=== PATIENT | female | born 1950 | race Caucasian/White ===

== ENCOUNTER 2016-11-18 09:58 | Outpatient (CLI) | payer MEDICARE, OTHER | END 2016-11-18 09:59 | disposition home or self-care (01) | DX: M51.36 Other intervertebral disc degeneration, lumbar region (principal); M47.816 Spondylosis without myelopathy or radiculopathy, lumbar region; M41.56 Other secondary scoliosis, lumbar region; M16.12 Unilateral primary osteoarthritis, left hip; R00.2 Palpitations ==

== ENCOUNTER 2017-04-28 08:27 | Outpatient (CLI) | payer MEDICARE, OTHER ==
--- NOTE | 2017-04-28 12:55 | XRAY Report ---
THREE-VIEW RIGHT FOOT: 04/28/2017 CLINICAL INDICATION: Right foot swelling. FINDINGS: AP, lateral, oblique views of the right foot demonstrate soft tissue swelling. Mild osteo arthritis is present. There is no evidence of acute fracture or dislocation. IMPRESSION: SOFT TISSUE SWELLING, BUT NO EVIDENCE OF FRACTURE. JOB #: [id number] EXT JOB #:[id number]
== END 2017-04-28 08:28 | disposition home or self-care (01) ==
LOC: DI 08:27
PROVIDERS: ATTEND Nurse Practitioner Family
DX: R22.41 Localized swelling, mass and lump, right lower limb (principal)

== ENCOUNTER 2017-12-11 12:55 | Outpatient (CLI) | payer MEDICARE, OTHER ==
--- NOTE | 2017-12-12 11:49 | DEXA Report ---
DEXA SCAN: 12/11/2017 CLINICAL INDICATION: Postmenopausal. TECHNIQUE: Dual energy x-ray absorptiometry (DXA) was performed on a [employer] system. Regions measured are the AP spine, femoral neck, and, if needed, forearm. COMPARISON: None. In accordance with the International Society for Clinical Densitometry (ISCD) guidelines, data from previous exams may be reanalyzed using current recommendations and techniques. This is done to allow a more accurate basis for comparison with the current study. FINDINGS: The data for the lumbar spine is as follows: REGION BMD (g/cm/cm) T-SCORE Z-SCORE L1 1.121 -0.1 1.2 L2 1.200 0.0 1.2 L3 1.107 -0.8 0.5 L4 1.039 -1.3 -0.1 TOTAL 1.113 -0.6 0.7 NOTE: All evaluable vertebrae are used for classification. The data for the hip is as follows: REGION BMD (g/cm/cm) T-SCORE Z-SCORE Neck 0.784 -1.8 -0.5 TOTAL 0.734 -2.2 -1.1 NOTE: The femoral neck or total proximal femur, whichever is lowest, is used for classification. IMPRESSION: THE WHO CLASSIFICATION BASED ON THE INTERNATIONAL REFERENCE STANDARD IS OSTEOPENIA. THE FRACTURE RISK IS INCREASED. RECOMMENDATION: Patients with diagnosis of osteoporosis or osteopenia should have regular bone mineral density assessment. For those eligible for Medicare, routine testing is allowed once every 2 years. Testing frequency can be increased for patients who have rapidly progressing disease or for those who are receiving medical therapy to restore bone mass. COMMENT: World Health Organization (WHO) definitions for osteoporosis and osteopenia: NORMAL BMD: T-score at 1.0 or higher, fracture risk is low. OSTEOPENIA BMD: T-score between 1.0 and -2.5, fracture risk is increased. OSTEOPOROSIS BMD: T-score at 2.5 or lower, fracture risk high. National Osteoporosis Foundation recommends: 1. Obtain adequate dietary calcium (at least 1200 mg per day) and vitamin D (400 -800 international units per day). 2. Participate, as appropriate, in regular weightbearing and muscle- strengthening exercise. 3. Avoid tobacco use and reduce alcohol and caffeine intake. 4. For more detailed information see the website at www.NOF.org. MTDD
== END 2017-12-11 12:56 | disposition home or self-care (01) ==
LOC: DI 12:55
PROVIDERS: ATTEND Physician Assistant
DX: M85.88 Other specified disorders of bone density and structure, other site (principal); Z78.0 Asymptomatic menopausal state
CPT/HCPCS: 77080

== ENCOUNTER 2023-09-08 11:41 | Outpatient (CLI) | payer MEDICARE, OTHER | END 2023-09-08 11:42 | disposition critical access hospital (66) | LOC: EMS 11:41 | DX: M25.521 Pain in right elbow (principal); W18.39XA Other fall on same level, initial encounter; Y92.009 Unspecified place in unspecified non-institutional (private) residence as the place of occurrence of the external cause | CPT/HCPCS: A0425; A0429 ==

== ENCOUNTER 2023-09-08 12:20 | Emergency (ER) | payer MEDICARE, OTHER ==
--- NOTE | 2023-09-08 12:29 | ED Physician Documentation ---
PD HPI Fall - Stated complaint Stated Complaint: GLF - History obtained from History obtained from: Patient - Additional information Additional information: Right-handed woman was tying her shoe and slipped and fell and injured her right elbow. No other injuries. Declines pain medication on initial evaluation. No head or neck injury. PD PAST MEDICAL HISTORY - Present Medications Home Medications: Ambulatory Orders Medication Instructions Recorded Confirmed HYDROcod/ACETAM 5/325 [[place] 5/325] 1 - 2 tab PO Q6H PRN #15 tablet 09/08/23 - Allergies Allergies/Adverse Reactions: Allergies Allergy/AdvReac Type Severity Reaction Status Date / Time No Known Drug Allergies Allergy Verified 09/08/23 13:15 PD ED PE NORMAL - Vitals Vital signs reviewed: Yes - General General: Alert and oriented X 3, No acute distress - HEENT HEENT: PERRL, EOMI - Neck Neck: Supple, no meningeal sign, No bony TTP - Extremities Extremities: Other (Focally tender in the right elbow over the radial head and cannot range the right elbow. No shoulder or wrist tenderness. Normal neurovascular function in the right hand.) - Neuro Neuro: Alert and oriented X 3, Normal speech Results - Vitals Vitals: Vital Signs - 24 hr 09/08/23 13:12 Temperature 36.9 C Heart Rate 68 Respiratory 18 Rate Blood Pressure 151/90 H O2 Saturation 99 Oxygen O2 Source Room air - Rads (name of study) L elbow xr Relevant Findings:: Final report received, EMP independent interpretation of test PD Medical Decision Making - ED course ED course: 73-year-old woman with isolated right elbow injury. X-rays showing to my I definitely a radial neck fracture and this is consistent with her exam. Radiologist wonders if she has an elbow subluxation. She is placed in a sling and referred to orthopedics. She declined pain medication. Departure - Departure Disposition: 01 Home, Self Care Clinical Impression: Radial neck fracture Qualifiers: Encounter type: initial encounter Fracture type: closed Fracture alignment: nondisplaced Laterality: right Qualified Code(s): S52.134A - Nondisplaced fracture of neck of right radius, initial encounter for closed fracture Condition: Good Record reviewed to determine appropriate education?: Yes Instructions: ED Fx Radial Head Follow-Up: Orthopedic Care [Provider Group] Prescriptions: HYDROcod/ACETAM 5/325 [[place] 5/325] 1 - 2 tab PO Q6H PRN #15 tablet PRN Reason: Pain Comments: I sent your prescription electronically to the [facility] in [place]. Call the orthopedics office today or Monday for an appointment within a week or so. You can wear the sling for comfort but after a few days if you want to start doing gentle range of motion exercises you are more than welcome to do so. Return for new or worsening symptoms. I am prescribing a short course of narcotic pain medication for you. These are potentially dangerous and addictive medications that should be used carefully. These medications may constipate you. Take an ohry-rew-mfzczxi stool softener (docusate) twice daily with plenty of water while taking these medications. If you go 24 hours without a bowel movement, take vltk-giz-uxcthgd miralax, per package instructions. Do not drink or drive while taking these medications. If you received narcotic or sedating medications while in the emergency department, do not drive for 24 hours. Store this medication in a safe, secure place and out of reach of children. It is a violation of federal law to give or sell this medication to another person or to use in a manner other than prescribed. The ED will not refill narcotic prescriptions, including prescriptions lost or stolen. To dispose of unwanted medications: 1. [facility] provides a drop box for medication in pill form only (no liquids) 8:00 am to 4:30 p.m. Monday-Monday in the lobby of the [facility], [address] [place] [address]. Empty pills into ziplock bag before disposal. Call [phone] for information. 2.[employer] is a free service available to all [facility] residents. Go to [email or web address] Note that many narcotic pain relievers also contain Tylenol/acetaminophen. Please ensure that your total dose of acetaminophen from all sources does not exceed 3 g (3000 mg) per day. Forms: PCP List Discharge Date/Time: 09/08/23 13:26
[2023-09-08 13:16] VITALS: BP 151/90; O2SAT 99
--- NOTE | 2023-09-08 13:27 | XRAY Report ---
PROCEDURE: Elbow 3 View RT INDICATIONS: elbow inj TECHNIQUE: 3 views of the elbow were acquired. COMPARISON: None. FINDINGS: Bones: Suggestion of probable radial neck fracture. No involvement of radial head noted. Probable el bow subluxation. Soft tissues: Question effusion. No suspicious soft tissue calcifications or masses. IMPRESSION: 1. Probable radial neck fracture. 2. Probable elbow subluxation. Comment: Consider CT elbow. Reviewed by: Levi Gage MD on 09/08/2023 1:26 PM PST Approved by: Levi Gage MD on 09/08/2023 1:26 PM PST Station ID: [id number]
== END 2023-09-08 13:26 | disposition home or self-care (01) ==
LOC: EDBD → ED 12:20
DX: S52.134A Nondisplaced fracture of neck of right radius, initial encounter for closed fracture (principal); W01.0XXA Fall on same level from slipping, tripping and stumbling without subsequent striking against object, initial encounter; Y93.89 Activity, other specified
CPT/HCPCS: 99283; 99284

== ENCOUNTER 2023-09-12 08:00 | Outpatient (CLI) | payer MEDICARE, OTHER ==
--- NOTE | 2023-09-12 16:31 | XRAY Report ---
PROCEDURE: Elbow 3 View RT INDICATIONS: RIGHT ELBOW FRACTURE TECHNIQUE: 5 views of the elbow were acquired. COMPARISON: 06/08/2023. FINDINGS: Bones: There is a relatively nondisplaced radial neck fracture. No other acute fractures or dislocati ons are identified. No significant degenerative changes seen. No joint effusion is present. IMPRESSION: Nondisplaced radial neck fracture. Reviewed by: Brian Albert MD on 09/12/2023 4:30 PM PST Approved by: Brian Albert MD on 09/12/2023 4:30 PM PST Station ID: [id number]
== END 2023-09-12 23:59 | disposition home or self-care (01) ==
LOC: DI.WOS 08:00
PROVIDERS: ATTEND Orthopaedic Surgery
DX: S52.134A Nondisplaced fracture of neck of right radius, initial encounter for closed fracture (principal)

== ENCOUNTER 2023-09-18 19:09 | Outpatient (CLI) | payer MEDICARE, OTHER | END 2023-09-18 23:59 | disposition critical access hospital (66) | LOC: EMS 19:09 | DX: R53.1 Weakness (principal) | CPT/HCPCS: A0425; A0429 ==

== ENCOUNTER 2023-09-18 19:48 | Emergency (ER) | payer MEDICARE, OTHER ==
[2023-09-18] MEDS ORDERED: SODIUM CHLORIDE 0.9% 500 ML IV STA (20:17)
--- NOTE | 2023-09-18 20:29 | ED Physician Documentation ---
History of Present Illness - Stated complaint Stated Complaint: WEAKNESS - Chief complaint Chief Complaint: General - History obtained from History obtained from: Patient - Additonal information Additional information: Patient is a 73-year-old female presenting for evaluation of increasing weakness for the past 1 week. She reports feeling tingling to bilateral feet and feels like her legs are going to give out at her, Particularly the left leg. She reports having ongoing issues with the left leg due to osteoarthritis of the left hip and actually fell recently due to the left leg giving out on her. She fell on Sep 08 and was seen in our emergency department and found to have a right elbow fracture and has followed up with orthopedic surgery. She is actually scheduled to see them again tomorrow. She only took a half a hydrocodone the first 3 nights to sleep but since then has only been using extra strength Tylenol. She went to the walk-in clinic in [place] on Monday for her symptoms and they obtained a large panel of blood work which she does not know the results of and referred her to neurology for her peripheral neuropathy. She has also been feeling urinary urgency for the past several days and feels like she is not emptying her bladder.She denies back pain, numbness throughout the legs, saddle anesthesia. She does not take a blood thinner. Denies episodes of incontinence. No fever, chest pain, shortness of air. Her was helping her to the bathroom when her legs were giving out and he tried to catch her and she reports having some mild pain to the right rib area as well as to the left hip. Reports having chronic left hip pain. Review of Systems Constitutional: denies: Fever Cardiac: denies: Chest pain / pressure Respiratory: denies: Dyspnea, Cough GI: denies: Abdominal Pain, Vomiting : reports: Frequency Musculoskeletal: denies: Back pain Neurologic: reports: Generalized weakness. denies: Syncope, Headache PD PAST MEDICAL HISTORY - Past Medical History Past Medical History: Yes - Past Surgical History Past Surgical History: No - Present Medications Home Medications: Ambulatory Orders Medication Instructions Recorded Confirmed HYDROcod/ACETAM 5/325 [[place] 5/325] 1 - 2 tab PO Q6H PRN #15 tablet 09/08/23 Metoprolol Succinate [Toprol Xl] DAILY 09/19/23 - Allergies Allergies/Adverse Reactions: Allergies Allergy/AdvReac Type Severity Reaction Status Date / Time No Known Drug Allergies Allergy Verified 09/18/23 20:03 - Social History Does the pt smoke?: No Smoking Status: Never smoker Does the pt drink ETOH?: No Does the pt have substance abuse?: No - Immunizations Immunizations are current?: Yes - POLST Patient has POLST: No PD ED PE NORMAL - General General: Alert and oriented X 3, No acute distress, Well developed/nourished - HEENT HEENT: Atraumatic, Moist mucous membranes, Pharynx benign - Neck Neck: Supple, no meningeal sign - Cardiac Cardiac: RRR, Strong equal pulses - Respiratory Respiratory: No respiratory distress, Clear bilaterally - Abdomen Abdomen: Normal bowel sounds, Soft, Non distended, Other (Suprapubic tenderness) - Derm Derm: Warm and dry - Extremities Extremities: Other (Right arm in sling neck, radial pulses intact bilaterally, pedal pulses intact bilaterally; Pain on range of motion of left hip which patient states is chronic, normal strength with ankle dorsiflexion and plantarflexion; normal patellar and ankle jerk reflexes b/l) - Neuro Neuro: Alert and oriented X 3, sink cutter 2-12 intact, No motor deficit, No sensory deficit, Normal speech Results - Vitals Vitals: Vital Signs - 24 hr 09/18/23 09/18/23 09/19/23 19:59 22:38 01:53 Temperature 37.0 C Heart Rate 89 86 83 Respiratory 18 18 18 Rate Blood Pressure 155/113 H 141/99 H O2 Saturation 98 98 96 09/19/23 06:12 Temperature Heart Rate 71 Respiratory 18 Rate Blood Pressure O2 Saturation 94 Oxygen O2 Source Room air - EKG (time done) 2031 EKG releavant findings:: EKG personally interpreted by author of this note. Relevant findings are: Rate 87, normal sinus rhythm, no STEMI, QTc 481 - Labs Labs: Laboratory Tests 09/18/23 09/18/23 09/18/23 20:07 20:49 20:49 WBC 8.8 RBC 4.50 Hgb 13.6 Hct 41.8 MCV 92.9 MCH 30.2 MCHC 32.5 RDW 12.8 Plt Count 290 MPV 9.4 Neut # (Auto) 6.2 Lymph # (Auto) 1.6 [place] # (Auto) 0.7 Eos # (Auto) 0.2 Baso # (Auto) 0.1 Absolute Nucleated RBC 0.00 Nucleated RBC % 0.0 Sodium 138 Potassium 3.8 Chloride 105 Carbon Dioxide 25 Anion Gap 8.0 BUN 24 H Creatinine 0.7 Estimated GFR (MDRD) 82 L Glucose 117 H Calcium 9.9 Total Bilirubin 0.4 AST 14 ALT 10 Alkaline Phosphatase 59 Total Protein 6.8 Albumin 4.3 Globulin 2.5 Albumin/Globulin Ratio 1.7 Lipase 40 TSH 1.94 Urine Color YELLOW Urine Clarity CLEAR Urine pH 6.5 Ur Specific [place] 1.010 Urine Protein NEGATIVE Urine Glucose (UA) NEGATIVE Urine Ketones NEGATIVE Urine Occult Blood NEGATIVE Urine Nitrite NEGATIVE Urine Bilirubin NEGATIVE Urine Urobilinogen 0.2 (NORMAL) Ur Leukocyte Esterase NEGATIVE Ur Microscopic Review NOT INDICATED Urine Culture Comments NOT INDICATED PD Medical Decision Making - ED course Complexity details: reviewed results, re-evaluated patient, d/w patient, d/w family ED course: Patient is a 73-year-old female presenting for evaluation of generalized weakness over the past 1 week. Patient did have a fall recently with a right radial head fracture. She has also been feeling like her left leg has been giving out on her more for the past several weeks and does have known severe osteoarthritis of that left hip. She has had no head injuries or further falls. She has felt some tingling in her feet as well as having some difficulty with emptying her bladder. She denies back pain, saddle anesthesia, incontinence. No fevers, history of IV drug use and does not take any blood thinners. No chest pain, shortness of air or abdominal symptoms. She did feel her legs giving out on her at this evening while trying to use the bathroom but her was able to catch her. She does report pain to the right ribs and left hip which x-rays were obtained and reviewed and without findings of acute fracture. She does have severe osteoarthritis on the left hip. She was found to have postvoid retention and a Rosales catheter was placed. Patient does feel better with this. CBC, chemistries, urinalysis were also obtained and reviewed and without significant findings. Patient was given some IV fluids. There is no urine infection.She again denies any back pain has had no trauma or discomfort to the back. Reflexes are intact in lower extremities. Sensation appears to be symmetric and no focal deficits to suggest a stroke.She is able to sit up on the edge of the bed without issue and does have symmetric strength in the lower extremities. Distal pulses intact. We did attempt to ambulate the patient and she continues to feel weak and wanting to hold onto her but she is able to ambulate. SHe is not able to use a walker given the injury to the R arm. I am concerned that if she goes home tonight that she would have another fall and she has already had a recent fall resulting in a fracture. Therefore we have made the decision to hold the patient in the emergency department overnight and have PT and OT evaluate her in the morning along with social work to determine a safe disposition. Patient will be signed out to oncoming provider at shift change. Departure - Departure Clinical Impression: Bilateral leg weakness, Urinary retention Radial head fracture, closed Qualifiers: Encounter type: subsequent encounter Laterality: right Condition: Stable Forms: PCP List
[2023-09-18 20:32] LABS: BILIRUBIN,URINE NEGATIVE (NEGATIVE); GLUCOSE, URINE (UA) NEGATIVE (NEGATIVE); KETONES,URINE (UA) NEGATIVE (NEGATIVE); LEUKOCYTE ESTERASE, URINE NEGATIVE (NEGATIVE); NITRITE,URINE NEGATIVE (NEGATIVE); OCCULT BLOOD,URINE NEGATIVE (NEGATIVE); PH,URINE 6.5 PH (5.0-7.5); PROTEIN,URINE NEGATIVE (NEGATIVE); UROBILINOGEN,URINE 0.2 (NORMAL) E.U./dL (NORMAL)
[2023-09-18 20:34] LABS: CLARITY,URINE CLEAR (CLEAR)
[2023-09-18 20:53] LABS: BASOPHILS # (AUTO) 0.1 10^3/uL (0.0-0.1); BASOPHILS % (AUTO) 0.7 %; EOSINOPHILS # (AUTO) 0.2 10^3/uL (0.0-0.7); EOSINOPHILS % (AUTO) 2.5 %; HCT - HEMATOCRIT 41.8 % (37.0-47.0); HGB - HEMOGLOBIN 13.6 g/dL (12.0-16.0); LYMPHOCYTES # (AUTO) 1.6 10^3/uL (1.5-3.5); LYMPHOCYTES % (AUTO) 17.7 %; MEAN CORPUSCULAR HEMOGLOBIN 30.2 pg (27.0-31.0); MEAN CORPUSCULAR HGB CONC 32.5 g/dL (32.0-36.0); MEAN CORPUSCULAR VOLUME 92.9 fL (81.0-99.0); MEAN PLATELET VOLUME 9.4 fL (7.9-10.8); MONOCYTES # (AUTO) 0.7 10^3/uL (0.0-1.0); MONOCYTES % (AUTO) 7.9 %; NEUTROPHILS # (AUTO) 6.2 10^3/uL (1.5-6.6); PLT - PLATELET COUNT 290 10^3/uL (130-450); RED CELL DISTRIBUTION WIDTH 12.8 % (12.0-15.0); WHITE BLOOD COUNT 8.8 x10^3/uL (4.8-10.8)
[2023-09-18 21:15] LABS: ALBUMIN 4.3 g/dL (3.2-5.5); ALBUMIN/GLOBULIN RATIO 1.7 (1.0-2.2); BILIRUBIN,TOTAL 0.4 mg/dL (0.2-1.0); CALCIUM 9.9 mg/dL (8.5-10.3); CREATININE 0.7 mg/dL (0.6-1.3); POTASSIUM 3.8 mmol/L (3.5-4.5); TOTAL PROTEIN 6.8 g/dL (6.4-8.9)
[2023-09-18 21:24] LABS: THYROID STIMULATING HORMONE 1.94 uIU/mL (0.34-5.60)
--- NOTE | 2023-09-18 22:59 | XRAY Report ---
PROCEDURE: Hip w/Pelvis 2-3V LT INDICATIONS: pain TECHNIQUE: AP pelvis with lateral view of the left hip. COMPARISON: Left hip radiographs 11/28/2016. FINDINGS: Bones: No acute fractures or dislocations. No suspicious bony lesions. Severe left hip osteoarthr osis with remodeling of the articular surfaces. Moderate right hip osteoporosis. Degenerative changes are seen in the included lumbar spine. Soft tissues: No suspicious soft tissue calcifications or masses. IMPRESSION: Asymmetric severe left hip osteoarthrosis, which has progressed when compared to the exam from 017. No acute osseous fracture identified. Reviewed by: Gaetano Bear MD on 09/18/2023 10:58 PM PST Approved by: Gaetano Bear MD on 09/18/2023 10:58 PM PST Station ID: [id number]
--- NOTE | 2023-09-18 23:06 | XRAY Report ---
PROCEDURE: Ribs w/PA Chest RT INDICATIONS: pain TECHNIQUE: 2 views of the right ribs were acquired, along with a single view chest. COMPARISON: None. FINDINGS: Surgical changes and devices: None. Bones and chest wall: No no acute displaced rib fracture. No suspicious bony lesions. Overlying so ft tissues appear unremarkable. Lungs and pleura: No pleural effusions or pneumothorax. Lungs appear clear. Mediastinum: Mediastinal contours appear normal. Heart size is normal. IMPRESSION: No acute displaced rib fracture or pneumothorax. Reviewed by: Gaetano Bear MD on 09/18/2023 11:04 PM PST Approved by: Gaetano Bear MD on 09/18/2023 11:04 PM [facility] Station ID: [id number]
[2023-09-19] MEDS: ACETAMINOPHEN 500 MG TABLET PO PRN ×2 (00:33→09:10)
[2023-09-19] MEDS: PANTOPRAZOLE 40 MG TABLET PO SCH ×2 (06:18→09:09)
[2023-09-19] MEDS ORDERED: KETOROLAC 15 MG/ML VIAL IVP STA (09:14)
--- NOTE | 2023-09-19 09:17 | ED Physician Documentation ---
ED Addendum - Addendum Addendum: 09/19/23 09:14 The patient and her spouse were stating her back pain was increased. She had been taking Tylenol at home and was asking for some extra strength. I noted in the orders that it was in place as a every 6 as needed and pointed that to the nurse who will give her some Tylenol. The patient does have an IV's in place and we can do some Toradol as well. She has noted leg weakness and some numbness as well as some urinary incontinence started about 4 to 5 days after a fall 2 weeks ago. She had been less up and around so some element perhaps of deconditioning. History of lumbar disc herniation in the past without this level of symptoms. In talking to her I think an MRI of the spine lumbar would be appropriate. She will think about it at this point. She is due to see a neurologist in a couple of days and was supposed to see orthopedics today. I think they would probably think an MRI lumbar appropriate and I conveyed this to the patient that it would be a step up ahead of the neurology visit as he is most likely to order that. She agrees to that but is still not sure "not sure if I am feeling up to it today". I offered other pain medicines and anxiolytics if needed for the MRI.
[2023-09-19] MEDS ORDERED: LORazepam 2 MG/ML VIAL IVP STA (12:29)
[2023-09-19] MEDS ORDERED: DEXAMETHASONE 10 MG/ML VIAL IVP STA (14:45)
--- NOTE | 2023-09-19 16:54 | MRI Report ---
PROCEDURE: LUMBAR SPINE WO INDICATIONS: new weakness, numbness in legs TECHNIQUE: Noncontrast sagittal T1 spin echo and T2 fast echo, sagittal STIR, axial T1 and T2 fast spin echo thr ough the lumbar spine. In cases with scoliosis, additional coronal T2 fast spin echo may be performe d. COMPARISON: None. FINDINGS: Image quality: Excellent. Alignment and Curvature: There is normal bony alignment. Bone Marrow: Mild Modic type II reactive endplate changes noted adjacent to the L1-L2, L2-L3 and L4-L 5 discs. No acute vertebral body compression fractures. Spinal Cord: Conus medullaris terminates at the L1 level. Visualized cord demonstrates normal signa l and size. Paraspinous Soft Tissues: No paravertebral masses. T12-L1: Normal in appearance. L1-L2: Loss of disc signal and height. Moderate, diffuse disc bulge. Mild narrowing of the central canal. Mild bilateral neural foraminal narrowing. No neural compression. L2-L3: Loss of disc signal and height. Moderate, diffuse disc bulge. Small left central disc extru rodo. Mild narrowing of the central canal. Mild bilateral neural foraminal narrowing. No neural compr ession. L3-L4: Loss of disc signal. No central stenosis. No neural foraminal narrowing. No neural compressi on. L4-L5: Loss of disc signal and height. Mild, diffuse disc bulge. Mild narrowing of the central anisha l. Mild right neural foraminal narrowing. No neural compression. L5-S1: Loss of disc signal. Mild, diffuse disc bulge. No central stenosis. No neural foraminal narr owing. No neural compression. IMPRESSION: Multilevel degenerative disc disease. No severe central canal stenosis. No severe neural foraminal narrowing. No neural compression. Reviewed by: Brittnee Pettit MD, PhD on 09/19/2023 4:53 PM PST Approved by: Brittnee Pettit MD, PhD on 09/19/2023 4:53 PM PST Station ID: [id number]
[2023-09-19] MEDS ORDERED: ACETAMINOPHEN 325 MG TABLET PO STA (17:48)
[2023-09-19 18:05] VITALS: O2SAT 96
--- NOTE | 2023-09-19 18:32 | ED Physician Documentation ---
ED Addendum - Addendum Addendum: Patient was signed out to me by Dr. Monsivais awaiting MRI results. MRI does not show any acute abnormalities. No evidence of cauda equina, epidural abscess. She has apparently had urinary retention issues for the past several months. Has had some issues with peripheral neuropathy as well. We will trial her on pregabalin for home as she does have restless leg syndrome as well as peripheral neuropathy. I did a repeat x-ray of her known radial head/neck fracture. This appears to be healing well. Discussed case with Dr. Cheney, orthopedics, he recommends range of motion, removal of the sling. Reviewed the PT/OT notes. Recommend a wide-based cane versus a platform walker for home. She will follow- up with her doctor in the morning for this. Will also write down the list of equipment that Occupational Therapy recommended. Patient did well ambulating in the emergency department. Patient and family are comfortable going home at this time. She does not want any narcotic pain medication. Patient and family counseled regarding signs and symptoms for which I believe and urgent re-evaluation would be necessary. Patient with good understanding of and agreement to plan and is comfortable going home at this time This document was made in part using voice recognition software. While efforts are made to proofread this document, sound alike and grammatical errors may occur. Departure - Departure Disposition: 01 Home, Self Care Clinical Impression: Bilateral leg weakness, Urinary retention Radial head fracture, closed Qualifiers: Encounter type: initial encounter Fracture alignment: nondisplaced Laterality: right Qualified Code(s): S52.124A - Nondisplaced fracture of head of right radius, initial encounter for closed fracture Condition: Stable Instructions: Neuropathy Peripheral, ED Catheter Care Rosales, ED Fx Radial Head, ED Retention Urinary Female Follow-Up: Sherrie Mcconnell MD [Primary Care Provider] - Tomorrow Prescriptions: Pregabalin 50 mg PO BID #20 cap Comments: Please follow-up with your doctor tomorrow for further care. Physical therapy has recommended home health and physical therapy to continue to work with you at home. You can try either ambulating with a platform walker to take the weight off of the right arm or with a quad cane. Your doctor would need to be the one to order home health and physical therapy. You were seen by physical therapy and Occupational Therapy in the emergency department. Occupational Therapy recommends a raised toilet seats, possible bedside commode with grab bars, shower/bath chair. Your radial head fracture appears to be healing. I discussed the case with Dr. Cheney, orthopedics who recommends removing the sling at this time. We still do not want to bearing weight on the elbow, but you should start to do range of motion exercises with the elbow. Please follow-up with your doctor for further care regarding your neuropathy and urinary retention. They may want to refer you to a urologist as well. Your MRI read as below. We will try you on some medication for neuropathy and restless leg syndrome at home. Your prescriptions were sent to [facility] in [place]. We are going to trial you on a low-dose of pregabalin, this drug may cause drowsiness, therefore I would recommend starting it at night. After the first 1 to 2 days, you can start to take it twice a day to see if this improves your restless legs and your neuropathy. PROCEDURE: LUMBAR SPINE WO INDICATIONS: new weakness, numbness in legs TECHNIQUE: Noncontrast sagittal T1 spin echo and T2 fast echo, sagittal STIR, axial T1 and T2 fast spin echo through the lumbar spine. In cases with scoliosis, additional coronal T2 fast spin echo may be perf ormed. COMPARISON: None. FINDINGS: Image quality: Excellent. Alignment and Curvature: There is normal bony alignment. Bone Marrow: Mild Modic type II reactive endplate changes noted adjacent to the L1-L2, L2-L3 and L4- L5 discs. No acute vertebral body compression fractures. Spinal Cord: Conus medullaris terminates at the L1 level. Visualized cord demonstrates normal signal and size. Paraspinous Soft Tissues: No paravertebral masses. T12-L1: Normal in appearance. L1-L2: Loss of disc signal and height. Moderate, diffuse disc bulge. Mild narrowing of the central canal. Mild bilateral neural foraminal narrowing. No neural compression. L2-L3: Loss of disc signal and height. Moderate, diffuse disc bulge. Small left central disc extrusion. Mild narrowing of the central canal. Mild bilateral neural foraminal narrowing. No neural compression. L3-L4: Loss of disc signal. No central stenosis. No neural foraminal narrowing. No neural compression. L4-L5: Loss of disc signal and height. Mild, diffuse disc bulge. Mild narrowing of the central canal. Mild right neural foraminal narrowing. No neural compression. L5-S1: Loss of disc signal. Mild, diffuse disc bulge. No central stenosis. No neural foraminal narrowing. No neural compression. IMPRESSION: Multilevel degenerative disc disease. No severe central canal stenosis. No severe neural foraminal narrowing. No neural compression. Forms: PCP List Discharge Date/Time: 09/19/23 19:12
--- NOTE | 2023-09-19 18:36 | XRAY Report ---
PROCEDURE: Elbow 3 View RT INDICATIONS: radial head fracture TECHNIQUE: 3 views of the elbow were acquired. COMPARISON: Elbow x-ray 09/12/2023 FINDINGS: Bones: Minimally displaced proximal radial neck fracture. Soft tissues: Minimal effusion. No suspicious soft tissue calcifications or masses. IMPRESSION: Minimally displaced proximal radial neck fracture. Reviewed by: Erna Montes MD on 09/19/2023 6:35 PM PST Approved by: Erna Montes MD on 09/19/2023 6:35 PM PST Station ID: [id number]
[2023-09-19 19:16] VITALS: BP 133/82
[2023-09-19] MEDS ORDERED: METOPROLOL SUCCINATE 50 MG TABLET PO SCH (21:00)
== END 2023-09-19 19:12 | disposition home or self-care (01) ==
LOC: EDBD → EDUNIT# → ED 19:48
DX: R33.9 Retention of urine, unspecified (principal); S52.121D Displaced fracture of head of right radius, subsequent encounter for closed fracture with routine healing; X58.XXXD Exposure to other specified factors, subsequent encounter; R53.1 Weakness; R20.2 Paresthesia of skin
CPT/HCPCS: 36415; 71101; 72148; 73080; 73502; 80053; 81003; 83690; 84443; 85025; 93005; 96374; 96375; 97116; 97162; 97167; 99284; A9270; J2060; 81001; 87086

== ENCOUNTER 2023-09-20 08:01 | Outpatient (CLI) | payer MEDICARE, OTHER | END 2023-09-20 08:02 | disposition EMS.NT | LOC: EMS 08:01 | DX: Z03.89 Encounter for observation for other suspected diseases and conditions ruled out (principal) ==

== ENCOUNTER 2023-09-20 09:49 | Outpatient (CLI) | payer MEDICARE, OTHER | END 2023-09-20 09:50 | disposition EMS.NT | LOC: EMS 09:49 | DX: T83.84XA Pain due to genitourinary prosthetic devices, implants and grafts, initial encounter (principal) ==

== ENCOUNTER 2023-09-20 11:02 | Emergency (ER) | payer MEDICARE, OTHER ==
--- NOTE | 2023-09-20 12:39 | ED Physician Documentation ---
History of Present Illness - Stated complaint Stated Complaint: CATHETER TIGHTNESS - Chief complaint Chief Complaint: General - History obtained from History obtained from: Patient, Family - History of Present Illness Timing: Today Pain level max: 0 Pain level now: 0 - Additonal information Additional information: Patient is a 73-year-old female who presents to the emergency department after a slip at home today. She has a Rosales catheter in place and wants to make sure that it did not become dislodged. She is not having any significant pain. The catheter has been draining clear yellow urine since the event. No blood in the bag. No other injuries. 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 HEENT: None Psych: None Musculoskeletal: None Derm: None Other Past Medical History: AAA - Past Surgical History Past Surgical History: No - Present Medications Home Medications: Ambulatory Orders Medication Instructions Recorded Confirmed Metoprolol Succinate [Toprol Xl] 50 mg ORAL DAILY 09/19/23 09/20/23 Pregabalin 50 mg PO BID #20 cap 09/19/23 09/20/23 Alendronate [Fosamax] 70 mg PO Q7D 09/20/23 09/20/23 - Allergies Allergies/Adverse Reactions: Allergies Allergy/AdvReac Type Severity Reaction Status Date / Time Penicillins AdvReac Unknown Verified 09/20/23 11:15 Sulfa (Sulfonamide AdvReac Unknown Verified 09/20/23 11:15 Antibiotics) - Social History Does the pt smoke?: No Smoking Status: Never smoker Does the pt drink ETOH?: Yes Does the pt have substance abuse?: No - Immunizations Immunizations are current?: Yes - POLST Patient has POLST: No PD ED PE NORMAL - Vitals Vital signs reviewed: Yes - General General: Alert and oriented X 3, No acute distress - HEENT HEENT: Moist mucous membranes - Derm Derm: Warm and dry - Extremities Extremities: Other (Rosales catheter in place, draining down the right leg into a leg bag, clear yellow urine.) - Neuro Neuro: Alert and oriented X 3 Results - Vitals Vitals: Vital Signs - 24 hr 09/20/23 11:16 Temperature 36.5 C Heart Rate 78 Respiratory 18 Rate Blood Pressure 140/85 H O2 Saturation 100 Oxygen O2 Source Room air PD Medical Decision Making - ED course Complexity details: considered differential, d/w patient ED course: 73-year-old female wants to check placement of her Rosales catheter after a fall today. No other injuries. No head, neck, back pain. No new numbness or tingling. Bedside ultrasound reveals a Rosales catheter balloon and a drained bladder. There is no blood at the urethral meatus. There is no blood in the catheter bag. The catheter is draining freely. There does not appear to be any injury to the catheter itself. Patient and family counseled regarding signs and symptoms for which I believe and urgent re-evaluation would be necessary. Patient with good understanding of and agreement to plan and is comfortable going home at this time This document was made in part using voice recognition software. While efforts are made to proofread this document, sound alike and grammatical errors may occur. Departure - Departure Disposition: 01 Home, Self Care Clinical Impression: Rosales catheter in place Condition: Good Instructions: ED Catheter Care Rosales Follow-Up: your,doctor as scheduled [Other] Comments: Your catheter is in place today. Ultrasound confirms the balloon in the bladder. It appears to be draining clear yellow urine. Please return if you worsen. Follow-up with your doctor for further care. Forms: PCP List
[2023-09-20 12:51] VITALS: BP 138/80; O2SAT 99
== END 2023-09-20 12:51 | disposition home or self-care (01) ==
LOC: ED 11:02
DX: Z46.6 Encounter for fitting and adjustment of urinary device (principal); I10 Essential (primary) hypertension; Z79.899 Other long term (current) drug therapy
CPT/HCPCS: 99281; 99282

== ENCOUNTER 2023-10-31 16:01 | Outpatient (CLI) | payer MEDICARE, OTHER | END 2023-10-31 16:02 | disposition critical access hospital (66) | LOC: EMS 16:01 | DX: T83.098A Other mechanical complication of other urinary catheter, initial encounter (principal); R39.89 Other symptoms and signs involving the genitourinary system; R10.30 Lower abdominal pain, unspecified; Z99.3 Dependence on wheelchair | CPT/HCPCS: A0425; A0429 ==

== ENCOUNTER 2023-10-31 16:38 | Emergency (ER) | payer MEDICARE, OTHER ==
--- NOTE | 2023-10-31 16:56 | ED Physician Documentation ---
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 Current catheter is only about a week old. After transfer today she thinks it stopped draining. She also has had some groin pain for the last few days. No back pain or fevers. 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 catheter HEENT: None Psych: None Musculoskeletal: None Derm: None - Past Surgical History Past Surgical History: No - Present Medications Home Medications: Ambulatory Orders Medication Instructions Recorded Confirmed Metoprolol Succinate [Toprol Xl] 50 mg ORAL DAILY 09/19/23 09/20/23 Pregabalin 50 mg PO BID #20 cap 09/19/23 09/20/23 Alendronate [Fosamax] 70 mg PO Q7D 09/20/23 09/20/23 Nystatin [Nystop] 1 applic TOP BID #3 each 10/31/23 - Allergies Allergies/Adverse Reactions: Allergies Allergy/AdvReac Type Severity Reaction Status Date / Time Penicillins AdvReac Unknown Verified 09/20/23 11:15 Sulfa (Sulfonamide AdvReac Unknown Verified 09/20/23 11:15 Antibiotics) - Social History Does the pt smoke?: No Smoking Status: Never smoker Does the pt drink ETOH?: Yes Does the pt have substance abuse?: No - Immunizations Immunizations are current?: Yes - POLST Patient has POLST: No PD ED PE NORMAL - Vitals Vital signs reviewed: Yes - General General: Alert and oriented X 3, No acute distress - Abdomen Abdomen: Normal bowel sounds, Soft, Non tender - Female Female : Other (She does have a vulvar yeast infection, the Rosales catheter is in place and appears to be draining okay and was flushed at the bedside with sterile saline which returned into the Rosales bag after we hooked back up. Urine is clear.) - Neuro Neuro: Alert and oriented X 3, Normal speech Results - Vitals Vitals: Oxygen O2 Source Room air PD Medical Decision Making - ED course ED course: 73-year-old woman with Rosales catheter concerns but it looks like it is working just fine. She does have a yeast infection and will treat with nystatin. Departure - Departure Disposition: 01 Home, Self Care Clinical Impression: Yeast infection Rosales catheter problem Qualifiers: Encounter type: initial encounter Qualified Code(s): T83.9XXA - Unspecified complication of genitourinary prosthetic device, implant and graft, initial encounter Condition: Good Record reviewed to determine appropriate education?: Yes Instructions: ED Catheter Care Rosales Prescriptions: Nystatin [Nystop] 1 applic TOP BID #3 each Comments: Call your doctor to arrange a follow-up appointment, make the next available appointment. In the interim, return anytime if worse or if new symptoms develop.
[2023-10-31 17:12] VITALS: BP 121/93; O2SAT 100
== END 2023-10-31 17:20 | disposition home or self-care (01) ==
LOC: EDUNIT# → ED 16:38
DX: T83.9XXA Unspecified complication of genitourinary prosthetic device, implant and graft, initial encounter (principal); B37.31 Acute candidiasis of vulva and vagina; Z79.899 Other long term (current) drug therapy
CPT/HCPCS: 99283

== ENCOUNTER 2023-10-31 18:44 | Outpatient (CLI) | payer MEDICARE, OTHER | END 2023-10-31 18:45 | disposition EMS.NT | LOC: EMS 18:44 | DX: T83.84XA Pain due to genitourinary prosthetic devices, implants and grafts, initial encounter (principal) ==

== ENCOUNTER 2023-11-07 15:02 | Outpatient (CLI) | payer MEDICARE, OTHER | END 2023-11-07 15:03 | disposition EMS.NT | LOC: EMS 15:02 | DX: Z03.89 Encounter for observation for other suspected diseases and conditions ruled out (principal) ==

== ENCOUNTER 2024-01-02 08:00 | Outpatient (CLI) | payer MEDICARE, OTHER ==
[2024-01-02 20:15] LABS: BILIRUBIN,URINE NEGATIVE (NEGATIVE); GLUCOSE, URINE (UA) NEGATIVE (NEGATIVE); KETONES,URINE (UA) NEGATIVE (NEGATIVE); LEUKOCYTE ESTERASE, URINE SMALL (NEGATIVE); NITRITE,URINE POSITIVE (NEGATIVE); OCCULT BLOOD,URINE NEGATIVE (NEGATIVE); PH,URINE 8.5 PH (5.0-7.5); PROTEIN,URINE NEGATIVE (NEGATIVE); UROBILINOGEN,URINE 0.2 (NORMAL) E.U./dL (NORMAL)
[2024-01-02 20:30] LABS: CLARITY,URINE CLOUDY (CLEAR)
[2024-01-02 20:40] LABS: RBC,URINE 0-5 /HPF (0-5)
[2024-01-02 20:41] LABS: BACTERIA,URINE Moderate /HPF (None Seen); SQUAMOUS EPITHELIAL CELL,UR RARE Squamous (<= Few); WBC,URINE 0-3 /HPF (0-5)
[2024-01-02 20:42] LABS: AMORPHOUS SEDIMENT,UR Moderate /LPF
== END 2024-01-02 23:59 | disposition home or self-care (01) ==
LOC: LAB.R 08:00
PROVIDERS: ATTEND Family Medicine
DX: N39.0 Urinary tract infection, site not specified (principal)
CPT/HCPCS: 81001; 81003; 87077; 87086; 87181

== ENCOUNTER 2024-04-17 09:41 | Outpatient (CLI) | payer MEDICARE, OTHER ==
[2024-04-17 10:14] LABS: CREATININE 0.6 mg/dL (0.6-1.3)
[2024-04-17] MEDS ORDERED: iohexoL-300 100 ML VIAL ONE (10:16)
[2024-04-17] MEDS: iohexoL-300 100 ML VIAL IVP ONE (10:30)
--- NOTE | 2024-04-24 17:01 | CT Report ---
PROCEDURE: Angio Abdomen/Pelvis INDICATIONS: Abdominal aorta that is CONTRAST: Omni 300 100ml TECHNIQUE: After the administration of intravenous contrast, 2.5 mm thick sections acquired from the diaphragm t o the symphysis. 10 mm maximum-intensity projection (MIP) reformats were then acquired. For radiati on dose reduction, the following was used: automated exposure control, adjustment of mA and/or kV ac cording to patient size. Study obtained for dictation on 04/22/2024; numerous attempts were made to obt ain priors unsuccessfully. COMPARISON: None available at the time of dictation FINDINGS: Image quality: Excellent. Aorta: Markedly tortuous with an infrarenal abdominal aortic aneurysm with mural thrombus present. T he abdominal aortic aneurysm measures 4.8 x 4.8 cm in transverse by AP dimension and extends into the common iliacs Mesenteric arteries: Celiac trunk, superior and inferior mesenteric arteries appear patent. Right pelvic arteries: Dissection flap extends from the distal aorta into the right common iliac mono ry; the flap continues into the right internal and external iliac artery, right external iliac artery . 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 Mild cardiomegaly. Liver and s pleen are normal in size and enhance t. Gallbladder shows no definite calcified stone . Biliary s ystem is is poorly evaluated with no gross abnormality seen. No pancreatic ductal dilation. No adren al nodules. Kidneys are normal in size and enhancement, without hydronephrosis. Severe diverticulosi s without evidence of diverticulitis Non opacified bowel loops are normal in wall thickness and calib er. No free fluid or air. No retroperitoneal or mesenteric adenopathy. No ventral hernias. No donya picious bony lesions. No vertebral body compression fracture DJD of both hips IMPRESSION: 1. Complex 4.8 cm saccular abdominal aortic aneurysm with large intramural thrombus component extends into both right and left common iliac arteries. 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 The femoral arteries are well perfused. Evaluation is limited without prior comparison. Recommen d urgent endovascular versus surgical consultation. 2. Severe diverticulosis without evidence of diverticulitis Reviewed by: Too Nazario MD on 04/24/2024 5:00 PM PDT Approved by: Too Nazario MD on 04/24/2024 5:00 PM PDT Station ID: [id number]
== END 2024-04-17 09:42 | disposition home or self-care (01) ==
LOC: LAB 09:41
DX: I71.40 Abdominal aortic aneurysm, without rupture, unspecified (principal); I51.3 Intracardiac thrombosis, not elsewhere classified; K57.90 Diverticulosis of intestine, part unspecified, without perforation or abscess without bleeding
CPT/HCPCS: 36415; 74174; 82565; Q9967